=== PATIENT | male | born 1935 | race Caucasian/White ===

== ENCOUNTER 2016-06-26 14:11 | Inpatient (IN) | payer MEDICARE, OTHER ==
[~2016-06-26 14:11] MED LIST: ASPIRIN EC81 MG PO; CINNAMON500 M1 PO; CO Q-10100 M2 PO; CRESTOR20 M1 PO; LECITHIN PO; LISINOPRIL2.5 M1 PO; MAGNESIUM400 M2 PO; NITROSTAT0.4 M1 PO; NORVASC5 M2 PO; SUPER B WITH V1 EACH PO; TOPROL XL25 M1 PO; VITAMIN D31000 UNI4 PO; [UNRECOGNIZED DRUG - OTHER] TOP
[2016-06-27 05:24] LABS: BASO % 0.2 % (0-2); EOS % 5.3 % (0-7); EOSINOPHIL ABSOLUTE COUNT 0.3 tho/cmm (0.0-0.7); IMMATURE GRANULOCYTES ABSOLUTE 0.01 tho/cmm (0-0.03); IMMATURE GRANULOCYTES PERCENT 0.2 % (0-0.3); LYMPH % 8.1 % (20-45); LYMPH ABSOLUTE COUNT 0.5 tho/cmm (0.8-4.5); MCV (MEAN CELL VOLUME) 93.6 fl (82.0-96.0); MEAN PLATELET VOLUME 10.5 cmc (9.4-12.4); MONO % 7.7 % (0-12); MONOCYTE ABSOLUTE COUNT 0.5 tho/cmm (0.0-1.2); NEUTROPHIL ABSOLUTE COUNT 4.9 tho/cmm (1.6-8.0); NEUTROPHIL-AUTOMATED 4.9 tho/cmm (1.6-8.0); NEUTROPHILS % 78.5 % (40-80); PLATELET COUNT 155 tho/cmm (150-450); RED BLOOD COUNT 2.67 mil/cmm (4.40-5.70); RED CELL DISTRIBUTION WIDTH 15.7 % (12.4-16.4); WHITE BLOOD COUNT 6.2 tho/cmm (4.0-10.0)
[2016-06-27 05:54] LABS: ALB/GLOB RATIO 0.8 (0.8-2.0); ALBUMIN 2.6 g/dl (3.5-5.0); ALKALINE PHOSPHATASE 66 U/L (33-138); ALT/SGPT 22 U/L (12-78); ANION GAP 14 mmol/L (0-20); AST/SGOT 26 U/L (10-40); BILIRUBIN,TOTAL 0.4 mg/dl (0.0-1.5); BLOOD UREA NITROGEN 43 mg/dl (6-24); CALCIUM 8.1 mg/dl (8.5-10.5); CARBON DIOXIDE-VENOUS 26 mmol/L (22-32); CHLORIDE 111 mmol/l (96-110); CREATININE 1.18 mg/dl (0.60-1.30); GLUCOSE 149 mg/dL (70-110); MAGNESIUM 2.8 mg/dl (1.8-2.6); PHOSPHOROUS 4.1 mg/dl (2.5-4.9); POTASSIUM 3.5 mmol/L (3.7-5.1); SODIUM 147 mmol/L (135-145); eGFR VALUE FOR BLACK 67 mL/Min
[2016-06-27 20:57] LABS: BASO % 0.1 % (0-2); EOS % 4.3 % (0-7); EOSINOPHIL ABSOLUTE COUNT 0.4 tho/cmm (0.0-0.7); HCT-HEMATOCRIT 28.9 % (36.0-53.5); HGB-HEMOGLOBIN 9.2 gm/dl (13.5-17.0); IMMATURE GRANULOCYTES ABSOLUTE 0.02 tho/cmm (0-0.03); IMMATURE GRANULOCYTES PERCENT 0.2 % (0-0.3); LYMPH % 8.9 % (20-45); LYMPH ABSOLUTE COUNT 0.7 tho/cmm (0.8-4.5); MCHC MEAN CORPUSCULAR HGB CONC 31.8 % (32.0-36.0); MCV (MEAN CELL VOLUME) 94.1 fl (82.0-96.0); MEAN PLATELET VOLUME 10.1 cmc (9.4-12.4); MONO % 5.5 % (0-12); MONOCYTE ABSOLUTE COUNT 0.4 tho/cmm (0.0-1.2); NEUTROPHIL ABSOLUTE COUNT 6.5 tho/cmm (1.6-8.0); NEUTROPHIL-AUTOMATED 6.5 tho/cmm (1.6-8.0); PLATELET COUNT 206 tho/cmm (150-450); RED BLOOD COUNT 3.07 mil/cmm (4.40-5.70); RED CELL DISTRIBUTION WIDTH 15.4 % (12.4-16.4); WHITE BLOOD COUNT 8.1 tho/cmm (4.0-10.0)
[2016-06-27 21:03] LABS: ANION GAP 14 mmol/L (0-20); BLOOD UREA NITROGEN 36 mg/dl (6-24); CARBON DIOXIDE-VENOUS 28 mmol/L (22-32); CHLORIDE 110 mmol/l (96-110); GLUCOSE 141 mg/dL (70-110); SODIUM 148 mmol/L (135-145)
[2016-06-27 21:04] LABS: CALCIUM 8.2 mg/dl (8.5-10.5); CREATININE 1.05 mg/dl (0.60-1.30); eGFR VALUE FOR BLACK 77 mL/Min
[2016-06-27 21:16] LABS: INR 1.3 INR (0.9-1.1); PROTHROMBIN TIME 14.7 SECONDS (9.0-13.6)
[2016-06-28 00:21] LABS: ABG CO2 ARTERIAL 25 mmol/L (21-27); ARTERIAL BLD GAS O2 SATURATION 99 % (95-98); ARTERIAL BLOOD GAS PCO2 46 mmHg (32-45); ARTERIAL PO2 127 mmHg (70-100); BICARBONATE 23 mmol/L (21-28); BLOOD GAS BASE EXCESS -2 mM/L (-/+3); PH 7.33 Units (7.35-7.45)
[2016-06-28 00:24] LABS: POTASSIUM 3.7 mmol/L (3.5-5.3)
[2016-06-28 02:56] LABS: ABG CO2 ARTERIAL 24 mmol/L (21-27); ARTERIAL BLD GAS O2 SATURATION 100 % (95-98); ARTERIAL BLOOD GAS PCO2 41 mmHg (32-45); ARTERIAL PO2 154 mmHg (70-100); BICARBONATE 23 mmol/L (21-28); BLOOD GAS BASE EXCESS -2 mM/L (-/+3); PH 7.37 Units (7.35-7.45)
[2016-06-28 03:02] LABS: HGB-HEMOGLOBIN 7.1 gm/dl (13.5-17.0); MCV (MEAN CELL VOLUME) 94.5 fl (82.0-96.0); RED CELL DISTRIBUTION WIDTH 15.5 % (12.4-16.4)
[2016-06-28 03:07] LABS: HCT-HEMATOCRIT 22.5 % (36.0-53.5)
[2016-06-28 05:38] LABS: HGB-HEMOGLOBIN 7.5 gm/dl (13.5-17.0); MCH (MEAN CORPUSCULAR HGB) 29.9 pg (28.0-32.0); MCV (MEAN CELL VOLUME) 93.6 fl (82.0-96.0); MEAN PLATELET VOLUME 10.8 cmc (9.4-12.4); NEUTROPHIL-AUTOMATED 4.2 tho/cmm (1.6-8.0); PLATELET COUNT 151 tho/cmm (150-450); RED BLOOD COUNT 2.51 mil/cmm (4.40-5.70); RED CELL DISTRIBUTION WIDTH 15.4 % (12.4-16.4); WHITE BLOOD COUNT 4.7 tho/cmm (4.0-10.0)
[2016-06-28 05:38] LABS: ABG CO2 ARTERIAL 25 mmol/L (21-27); ARTERIAL BLD GAS O2 SATURATION 99 % (95-98); ARTERIAL BLOOD GAS PCO2 37 mmHg (32-45); BICARBONATE 24 mmol/L (21-28); BLOOD GAS BASE EXCESS 0 mM/L (-/+3); PH 7.42 Units (7.35-7.45)
[2016-06-28 05:40] LABS: ARTERIAL PO2 120 mmHg (70-100)
[2016-06-28 05:54] LABS: HCT-HEMATOCRIT 23.5 % (36.0-53.5); MCHC MEAN CORPUSCULAR HGB CONC 31.9 % (32.0-36.0)
[2016-06-28 06:00] LABS: ALB/GLOB RATIO 1.2 (0.8-2.0); ALBUMIN 2.6 g/dl (3.5-5.0); ALKALINE PHOSPHATASE 42 U/L (33-138); ALT/SGPT 27 U/L (12-78); ANION GAP 13 mmol/L (0-20); BILIRUBIN,DIRECT 0.3 mg/dl (0.0-0.3); BLOOD UREA NITROGEN 42 mg/dl (6-24); CALCIUM 7.4 mg/dl (8.5-10.5); CARBON DIOXIDE-VENOUS 24 mmol/L (22-32); CHLORIDE 115 mmol/l (96-110); GLUCOSE 213 mg/dL (70-110); POTASSIUM 4.2 mmol/L (3.7-5.1); SODIUM 148 mmol/L (135-145)
[2016-06-28 06:04] LABS: AST/SGOT 42 U/L (10-40); BILIRUBIN,INDIRECT 0.7 mg/dL (0.0-1.0); CREATININE 1.61 mg/dl (0.60-1.30); eGFR VALUE FOR BLACK 46 mL/Min
[2016-06-28 07:19] LABS: BAND % 44 % (0-20); BAND ABSOLUTE COUNT 2.1 tho/cmm (0-2.0); BASOPHIL % 1 % (0-2)
[2016-06-28 11:15] LABS: HCT-HEMATOCRIT 32.3 % (36.0-53.5); HGB-HEMOGLOBIN 10.6 gm/dl (13.5-17.0); MCV (MEAN CELL VOLUME) 90.7 fl (82.0-96.0); RED CELL DISTRIBUTION WIDTH 15.3 % (12.4-16.4)
[2016-06-29 03:54] LABS: ANION GAP 11 mmol/L (0-20); BLOOD UREA NITROGEN 40 mg/dl (6-24); CALCIUM 7.4 mg/dl (8.5-10.5); CARBON DIOXIDE-VENOUS 25 mmol/L (22-32); CHLORIDE 115 mmol/l (96-110); CREATININE 1.41 mg/dl (0.60-1.30); GLUCOSE 234 mg/dL (70-110); POTASSIUM 4.3 mmol/L (3.7-5.1); SODIUM 147 mmol/L (135-145); eGFR VALUE FOR BLACK 54 mL/Min
[2016-06-29 05:23] LABS: ABG CO2 ARTERIAL 26 mmol/L (21-27); ARTERIAL BLD GAS O2 SATURATION 96 % (95-98); ARTERIAL BLOOD GAS PCO2 34 mmHg (32-45); ARTERIAL PO2 75 mmHg (70-100); BICARBONATE 25 mmol/L (21-28); BLOOD GAS BASE EXCESS 1 mM/L (-/+3); PH 7.47 Units (7.35-7.45)
[2016-06-29 12:45] LABS: HCT-HEMATOCRIT 28.3 % (36.0-53.5); HGB-HEMOGLOBIN 9.1 gm/dl (13.5-17.0); MCH (MEAN CORPUSCULAR HGB) 29.3 pg (28.0-32.0); MCHC MEAN CORPUSCULAR HGB CONC 32.2 % (32.0-36.0); MEAN PLATELET VOLUME 11.9 cmc (9.4-12.4); NEUTROPHIL-AUTOMATED 7.4 tho/cmm (1.6-8.0); PLATELET COUNT 128 tho/cmm (150-450); RED BLOOD COUNT 3.11 mil/cmm (4.40-5.70); RED CELL DISTRIBUTION WIDTH 15.5 % (12.4-16.4)
[2016-06-29 12:50] LABS: WHITE BLOOD COUNT 8.1 tho/cmm (4.0-10.0)
[2016-06-29 13:58] LABS: BAND % 24 % (0-20); BAND ABSOLUTE COUNT 1.9 tho/cmm (0-2.0)
[2016-06-29 16:30] LABS: ABG CO2 ARTERIAL 27 mmol/L (21-27); ARTERIAL BLD GAS O2 SATURATION 98 % (95-98); ARTERIAL BLOOD GAS PCO2 35 mmHg (32-45); BICARBONATE 26 mmol/L (21-28); BLOOD GAS BASE EXCESS 3 mM/L (-/+3); PH 7.49 Units (7.35-7.45)
[2016-06-29 16:31] LABS: ARTERIAL PO2 98 mmHg (70-100)
[2016-06-30 04:37] LABS: EOSINOPHIL ABSOLUTE COUNT 0.1 tho/cmm (0.0-0.7); HCT-HEMATOCRIT 28.7 % (36.0-53.5); HGB-HEMOGLOBIN 9.3 gm/dl (13.5-17.0); IMMATURE GRANULOCYTES ABSOLUTE 0.02 tho/cmm (0-0.03); IMMATURE GRANULOCYTES PERCENT 0.3 % (0-0.3); LYMPH ABSOLUTE COUNT 0.4 tho/cmm (0.8-4.5); MCH (MEAN CORPUSCULAR HGB) 29.7 pg (28.0-32.0); MCHC MEAN CORPUSCULAR HGB CONC 32.4 % (32.0-36.0); MCV (MEAN CELL VOLUME) 91.7 fl (82.0-96.0); MEAN PLATELET VOLUME 11.2 cmc (9.4-12.4); MONO % 2.1 % (0-12); MONOCYTE ABSOLUTE COUNT 0.2 tho/cmm (0.0-1.2); NEUTROPHIL ABSOLUTE COUNT 7.3 tho/cmm (1.6-8.0); NEUTROPHIL-AUTOMATED 7.3 tho/cmm (1.6-8.0); NEUTROPHILS % 91.6 % (40-80); PLATELET COUNT 135 tho/cmm (150-450); RED BLOOD COUNT 3.13 mil/cmm (4.40-5.70); RED CELL DISTRIBUTION WIDTH 15.6 % (12.4-16.4)
[2016-06-30 05:20] LABS: ALB/GLOB RATIO 0.5 (0.8-2.0); ALBUMIN 1.9 g/dl (3.5-5.0); ALKALINE PHOSPHATASE 54 U/L (33-138); ALT/SGPT 30 U/L (12-78); ANION GAP 12 mmol/L (0-20); AST/SGOT 41 U/L (10-40); BILIRUBIN,TOTAL 0.5 mg/dl (0.0-1.5); BLOOD UREA NITROGEN 39 mg/dl (6-24); CALCIUM 7.8 mg/dl (8.5-10.5); CARBON DIOXIDE-VENOUS 27 mmol/L (22-32); CHLORIDE 115 mmol/l (96-110); CREATININE 1.26 mg/dl (0.60-1.30); GLUCOSE 184 mg/dL (70-110); MAGNESIUM 2.7 mg/dl (1.8-2.6); PHOSPHOROUS 3.2 mg/dl (2.5-4.9); POTASSIUM 4.4 mmol/L (3.7-5.1); SODIUM 150 mmol/L (135-145); eGFR VALUE FOR BLACK 62 mL/Min
[2016-06-30 05:48] LABS: PREALBUMIN 4.6 mg/dl (20.0-40.0)
[2016-07-01 04:35] LABS: BASO % 0.1 % (0-2); EOS % 3.5 % (0-7); EOSINOPHIL ABSOLUTE COUNT 0.3 tho/cmm (0.0-0.7); HCT-HEMATOCRIT 28.6 % (36.0-53.5); IMMATURE GRANULOCYTES ABSOLUTE 0.01 tho/cmm (0-0.03); IMMATURE GRANULOCYTES PERCENT 0.1 % (0-0.3); LYMPH % 3.8 % (20-45); LYMPH ABSOLUTE COUNT 0.3 tho/cmm (0.8-4.5); MCH (MEAN CORPUSCULAR HGB) 29.4 pg (28.0-32.0); MCHC MEAN CORPUSCULAR HGB CONC 31.5 % (32.0-36.0); MCV (MEAN CELL VOLUME) 93.5 fl (82.0-96.0); MEAN PLATELET VOLUME 11.6 cmc (9.4-12.4); MONO % 5.2 % (0-12); MONOCYTE ABSOLUTE COUNT 0.4 tho/cmm (0.0-1.2); NEUTROPHIL ABSOLUTE COUNT 6.4 tho/cmm (1.6-8.0); NEUTROPHIL-AUTOMATED 6.4 tho/cmm (1.6-8.0); NEUTROPHILS % 87.3 % (40-80); PLATELET COUNT 154 tho/cmm (150-450); RED BLOOD COUNT 3.06 mil/cmm (4.40-5.70); RED CELL DISTRIBUTION WIDTH 15.5 % (12.4-16.4); WHITE BLOOD COUNT 7.3 tho/cmm (4.0-10.0)
[2016-07-01 04:49] LABS: ANION GAP 11 mmol/L (0-20); BLOOD UREA NITROGEN 34 mg/dl (6-24); CALCIUM 7.9 mg/dl (8.5-10.5); CARBON DIOXIDE-VENOUS 28 mmol/L (22-32); CHLORIDE 114 mmol/l (96-110); CREATININE 1.06 mg/dl (0.60-1.30); GLUCOSE 191 mg/dL (70-110); POTASSIUM 4.2 mmol/L (3.7-5.1); SODIUM 149 mmol/L (135-145); eGFR VALUE FOR BLACK 76 mL/Min
[2016-07-02 05:31] LABS: PLATELET COUNT 175 tho/cmm (150-450)
[2016-07-02 05:47] LABS: ANION GAP 10 mmol/L (0-20); BLOOD UREA NITROGEN 33 mg/dl (6-24); CALCIUM 7.7 mg/dl (8.5-10.5); CARBON DIOXIDE-VENOUS 29 mmol/L (22-32); CHLORIDE 110 mmol/l (96-110); CREATININE 1.12 mg/dl (0.60-1.30); GLUCOSE 184 mg/dL (70-110); POTASSIUM 4.4 mmol/L (3.7-5.1); SODIUM 145 mmol/L (135-145); eGFR VALUE FOR BLACK 72 mL/Min
[2016-07-02 08:24] LABS: ABG CO2 ARTERIAL 28 mmol/L (21-27); ARTERIAL BLD GAS O2 SATURATION 97 % (95-98); ARTERIAL BLOOD GAS PCO2 42 mmHg (32-45); ARTERIAL PO2 83 mmHg (70-100); BICARBONATE 27 mmol/L (21-28); BLOOD GAS BASE EXCESS 3 mM/L (-/+3); PH 7.42 Units (7.35-7.45)
[2016-07-03 06:20] LABS: ANION GAP 10 mmol/L (0-20); BLOOD UREA NITROGEN 35 mg/dl (6-24); CALCIUM 7.6 mg/dl (8.5-10.5); CARBON DIOXIDE-VENOUS 28 mmol/L (22-32); CHLORIDE 108 mmol/l (96-110); CREATININE 1.15 mg/dl (0.60-1.30); GLUCOSE 184 mg/dL (70-110); MAGNESIUM 2.2 mg/dl (1.8-2.6); PHOSPHOROUS 3.2 mg/dl (2.5-4.9); POTASSIUM 4.4 mmol/L (3.7-5.1); SODIUM 142 mmol/L (135-145); eGFR VALUE FOR BLACK 69 mL/Min
[2016-07-03 06:36] LABS: PROCALCITONIN 1.73 ng/ml (0.05-0.09)
[2016-07-04 04:30] LABS: BASO % 0.2 % (0-2); EOS % 3.4 % (0-7); EOSINOPHIL ABSOLUTE COUNT 0.3 tho/cmm (0.0-0.7); HCT-HEMATOCRIT 28.2 % (36.0-53.5); HGB-HEMOGLOBIN 8.7 gm/dl (13.5-17.0); IMMATURE GRANULOCYTES ABSOLUTE 0.04 tho/cmm (0-0.03); IMMATURE GRANULOCYTES PERCENT 0.4 % (0-0.3); LYMPH ABSOLUTE COUNT 0.7 tho/cmm (0.8-4.5); MCH (MEAN CORPUSCULAR HGB) 28.8 pg (28.0-32.0); MCHC MEAN CORPUSCULAR HGB CONC 30.9 % (32.0-36.0); MCV (MEAN CELL VOLUME) 93.4 fl (82.0-96.0); MEAN PLATELET VOLUME 11.9 cmc (9.4-12.4); MONO % 5.5 % (0-12); MONOCYTE ABSOLUTE COUNT 0.5 tho/cmm (0.0-1.2); NEUTROPHIL ABSOLUTE COUNT 7.4 tho/cmm (1.6-8.0); NEUTROPHIL-AUTOMATED 7.4 tho/cmm (1.6-8.0); NEUTROPHILS % 82.5 % (40-80); PLATELET COUNT 229 tho/cmm (150-450); RED BLOOD COUNT 3.02 mil/cmm (4.40-5.70); RED CELL DISTRIBUTION WIDTH 15.1 % (12.4-16.4); WHITE BLOOD COUNT 8.9 tho/cmm (4.0-10.0)
[2016-07-04 04:43] LABS: ALB/GLOB RATIO 0.3 (0.8-2.0); ALBUMIN 1.4 g/dl (3.5-5.0); ALKALINE PHOSPHATASE 126 U/L (33-138); ALT/SGPT 131 U/L (12-78); ANION GAP 11 mmol/L (0-20); AST/SGOT 157 U/L (10-40); BILIRUBIN,TOTAL 0.5 mg/dl (0.0-1.5); BLOOD UREA NITROGEN 37 mg/dl (6-24); CALCIUM 7.7 mg/dl (8.5-10.5); CARBON DIOXIDE-VENOUS 28 mmol/L (22-32); CHLORIDE 108 mmol/l (96-110); CREATININE 1.22 mg/dl (0.60-1.30); GLUCOSE 174 mg/dL (70-110); MAGNESIUM 2.4 mg/dl (1.8-2.6); PHOSPHOROUS 3.2 mg/dl (2.5-4.9); POTASSIUM 4.4 mmol/L (3.7-5.1); SODIUM 143 mmol/L (135-145); eGFR VALUE FOR BLACK 64 mL/Min
[2016-07-04 06:48] LABS: PREALBUMIN 6.2 mg/dl (20.0-40.0)
[2016-07-05 03:52] LABS: ALB/GLOB RATIO 0.3 (0.8-2.0); ALBUMIN 1.4 g/dl (3.5-5.0); ALKALINE PHOSPHATASE 136 U/L (33-138); ALT/SGPT 134 U/L (12-78); BILIRUBIN,TOTAL 0.4 mg/dl (0.0-1.5); BLOOD UREA NITROGEN 38 mg/dl (6-24); CALCIUM 7.5 mg/dl (8.5-10.5); CARBON DIOXIDE-VENOUS 26 mmol/L (22-32); CHLORIDE 109 mmol/l (96-110); CREATININE 1.09 mg/dl (0.60-1.30); GLUCOSE 183 mg/dL (70-110); PHOSPHOROUS 3.3 mg/dl (2.5-4.9); SODIUM 139 mmol/L (135-145); eGFR VALUE FOR BLACK 74 mL/Min
[2016-07-05 04:06] LABS: ANION GAP 12 mmol/L (0-20); AST/SGOT 155 U/L (10-40); MAGNESIUM 2.3 mg/dl (1.8-2.6)
[2016-07-05 04:13] LABS: PROCALCITONIN 0.98 ng/ml (0.05-0.09)
[2016-07-05 05:50] LABS: ALB/GLOB RATIO 0.3 (0.8-2.0); ALBUMIN 1.4 g/dl (3.5-5.0); ALKALINE PHOSPHATASE 145 U/L (33-138); ALT/SGPT 137 U/L (12-78); ANION GAP 12 mmol/L (0-20); AST/SGOT 143 U/L (10-40); BILIRUBIN,TOTAL 0.4 mg/dl (0.0-1.5); BLOOD UREA NITROGEN 38 mg/dl (6-24); CALCIUM 7.7 mg/dl (8.5-10.5); CARBON DIOXIDE-VENOUS 28 mmol/L (22-32); CHLORIDE 108 mmol/l (96-110); CREATININE 1.13 mg/dl (0.60-1.30); GLUCOSE 188 mg/dL (70-110); MAGNESIUM 2.5 mg/dl (1.8-2.6); PHOSPHOROUS 3.1 mg/dl (2.5-4.9); SODIUM 143 mmol/L (135-145); eGFR VALUE FOR BLACK 71 mL/Min
[2016-07-05 05:58] LABS: POTASSIUM 4.8 mmol/L (3.7-5.1)
[2016-07-05 06:16] LABS: PROCALCITONIN 0.97 ng/ml (0.05-0.09)
[2016-07-06 05:29] LABS: HGB-HEMOGLOBIN 9.4 gm/dl (13.5-17.0); PLATELET COUNT 337 tho/cmm (150-450)
[2016-07-06 07:46] LABS: POTASSIUM 7.7 mmol/L (3.7-5.1)
[2016-07-06 19:06] LABS: BASO % 0.2 % (0-2); EOS % 2.2 % (0-7); EOSINOPHIL ABSOLUTE COUNT 0.2 tho/cmm (0.0-0.7); HCT-HEMATOCRIT 28.1 % (36.0-53.5); IMMATURE GRANULOCYTES ABSOLUTE 0.03 tho/cmm (0-0.03); IMMATURE GRANULOCYTES PERCENT 0.4 % (0-0.3); LYMPH % 6.9 % (20-45); LYMPH ABSOLUTE COUNT 0.6 tho/cmm (0.8-4.5); MCH (MEAN CORPUSCULAR HGB) 29.3 pg (28.0-32.0); MCV (MEAN CELL VOLUME) 91.5 fl (82.0-96.0); MEAN PLATELET VOLUME 12.4 cmc (9.4-12.4); MONO % 6.5 % (0-12); MONOCYTE ABSOLUTE COUNT 0.6 tho/cmm (0.0-1.2); NEUTROPHIL ABSOLUTE COUNT 7.2 tho/cmm (1.6-8.0); NEUTROPHIL-AUTOMATED 7.2 tho/cmm (1.6-8.0); NEUTROPHILS % 83.8 % (40-80); PLATELET COUNT 357 tho/cmm (150-450); RED BLOOD COUNT 3.07 mil/cmm (4.40-5.70); RED CELL DISTRIBUTION WIDTH 14.8 % (12.4-16.4); WHITE BLOOD COUNT 8.6 tho/cmm (4.0-10.0)
[2016-07-06 19:23] LABS: ALB/GLOB RATIO 0.3 (0.8-2.0); ALBUMIN 1.5 g/dl (3.5-5.0); ALKALINE PHOSPHATASE 165 U/L (33-138); ALT/SGPT 156 U/L (12-78); ANION GAP 11 mmol/L (0-20); AST/SGOT 136 U/L (10-40); BILIRUBIN,DIRECT 0.2 mg/dl (0.0-0.3); BILIRUBIN,INDIRECT 0.2 mg/dL (0.0-1.0); BILIRUBIN,TOTAL 0.4 mg/dl (0.0-1.5); BLOOD UREA NITROGEN 35 mg/dl (6-24); CARBON DIOXIDE-VENOUS 27 mmol/L (22-32); CHLORIDE 110 mmol/l (96-110); CREATININE 0.97 mg/dl (0.60-1.30); GLUCOSE 196 mg/dL (70-110); POTASSIUM 4.4 mmol/L (3.7-5.1); SODIUM 144 mmol/L (135-145); eGFR VALUE FOR BLACK 85 mL/Min
[2016-07-07 05:54] LABS: ALB/GLOB RATIO 0.3 (0.8-2.0); ALBUMIN 1.5 g/dl (3.5-5.0); ALKALINE PHOSPHATASE 171 U/L (33-138); ALT/SGPT 166 U/L (12-78); ANION GAP 12 mmol/L (0-20); AST/SGOT 134 U/L (10-40); BILIRUBIN,TOTAL 0.4 mg/dl (0.0-1.5); BLOOD UREA NITROGEN 35 mg/dl (6-24); CALCIUM 8.1 mg/dl (8.5-10.5); CARBON DIOXIDE-VENOUS 26 mmol/L (22-32); CHLORIDE 112 mmol/l (96-110); CREATININE 0.95 mg/dl (0.60-1.30); GLUCOSE 203 mg/dL (70-110); MAGNESIUM 2.3 mg/dl (1.8-2.6); PHOSPHOROUS 3.5 mg/dl (2.5-4.9); POTASSIUM 4.5 mmol/L (3.7-5.1); SODIUM 145 mmol/L (135-145); eGFR VALUE FOR BLACK 87 mL/Min
[2016-07-07 06:00] LABS: PREALBUMIN 7.9 mg/dl (20.0-40.0)
[2016-07-09 07:15] LABS: BASO % 0.2 % (0-2); EOS % 3.6 % (0-7); EOSINOPHIL ABSOLUTE COUNT 0.3 tho/cmm (0.0-0.7); HCT-HEMATOCRIT 27.1 % (36.0-53.5); HGB-HEMOGLOBIN 8.5 gm/dl (13.5-17.0); IMMATURE GRANULOCYTES ABSOLUTE 0.09 tho/cmm (0-0.03); IMMATURE GRANULOCYTES PERCENT 0.9 % (0-0.3); LYMPH % 8.8 % (20-45); LYMPH ABSOLUTE COUNT 0.8 tho/cmm (0.8-4.5); MCH (MEAN CORPUSCULAR HGB) 28.7 pg (28.0-32.0); MCHC MEAN CORPUSCULAR HGB CONC 31.4 % (32.0-36.0); MCV (MEAN CELL VOLUME) 91.6 fl (82.0-96.0); MEAN PLATELET VOLUME 11.9 cmc (9.4-12.4); MONO % 6.4 % (0-12); MONOCYTE ABSOLUTE COUNT 0.6 tho/cmm (0.0-1.2); NEUTROPHIL ABSOLUTE COUNT 7.7 tho/cmm (1.6-8.0); NEUTROPHIL-AUTOMATED 7.7 tho/cmm (1.6-8.0); NEUTROPHILS % 80.1 % (40-80); PLATELET COUNT 482 tho/cmm (150-450); RED BLOOD COUNT 2.96 mil/cmm (4.40-5.70); RED CELL DISTRIBUTION WIDTH 14.8 % (12.4-16.4); WHITE BLOOD COUNT 9.6 tho/cmm (4.0-10.0)
[2016-07-09 07:29] LABS: ANION GAP 12 mmol/L (0-20); BLOOD UREA NITROGEN 41 mg/dl (6-24); CARBON DIOXIDE-VENOUS 26 mmol/L (22-32); CHLORIDE 110 mmol/l (96-110); CREATININE 1.06 mg/dl (0.60-1.30); GLUCOSE 194 mg/dL (70-110); POTASSIUM 4.5 mmol/L (3.7-5.1); SODIUM 143 mmol/L (135-145); eGFR VALUE FOR BLACK 76 mL/Min
[2016-07-09 18:00] LABS: ABG CO2 ARTERIAL 23 mmol/L (21-27); ARTERIAL BLD GAS O2 SATURATION 97 % (95-98); ARTERIAL BLOOD GAS PCO2 39 mmHg (32-45); ARTERIAL PO2 107 mmHg (70-100); BICARBONATE 21 mmol/L (21-28); BLOOD GAS BASE EXCESS -3 mM/L (-/+3); PH 7.36 Units (7.35-7.45)
[2016-07-09 18:11] LABS: BASO % 1.3 % (0-2); EOS % 4.7 % (0-7); EOSINOPHIL ABSOLUTE COUNT 0.1 tho/cmm (0.0-0.7); HCT-HEMATOCRIT 29.3 % (36.0-53.5); HGB-HEMOGLOBIN 9.2 gm/dl (13.5-17.0); IMMATURE GRANULOCYTES ABSOLUTE 0.07 tho/cmm (0-0.03); IMMATURE GRANULOCYTES PERCENT 2.4 % (0-0.3); LYMPH % 18.9 % (20-45); LYMPH ABSOLUTE COUNT 0.6 tho/cmm (0.8-4.5); MCHC MEAN CORPUSCULAR HGB CONC 31.4 % (32.0-36.0); MCV (MEAN CELL VOLUME) 92.4 fl (82.0-96.0); MEAN PLATELET VOLUME 12.5 cmc (9.4-12.4); MONO % 2.4 % (0-12); MONOCYTE ABSOLUTE COUNT 0.1 tho/cmm (0.0-1.2); NEUTROPHIL ABSOLUTE COUNT 2.1 tho/cmm (1.6-8.0); NEUTROPHIL-AUTOMATED 2.1 tho/cmm (1.6-8.0); NEUTROPHILS % 70.3 % (40-80); PLATELET COUNT 605 tho/cmm (150-450); RED BLOOD COUNT 3.17 mil/cmm (4.40-5.70); RED CELL DISTRIBUTION WIDTH 14.9 % (12.4-16.4)
[2016-07-09 18:43] LABS: ALB/GLOB RATIO 0.3 (0.8-2.0); ALBUMIN 1.7 g/dl (3.5-5.0); ALKALINE PHOSPHATASE 218 U/L (33-138); ALT/SGPT 176 U/L (12-78); ANION GAP 14 mmol/L (0-20); AST/SGOT 125 U/L (10-40); BILIRUBIN,TOTAL 0.3 mg/dl (0.0-1.5); BLOOD UREA NITROGEN 48 mg/dl (6-24); CALCIUM 8.1 mg/dl (8.5-10.5); CARBON DIOXIDE-VENOUS 25 mmol/L (22-32); CHLORIDE 110 mmol/l (96-110); CREATININE 1.32 mg/dl (0.60-1.30); GLUCOSE 147 mg/dL (70-110); POTASSIUM 4.9 mmol/L (3.7-5.1); SODIUM 144 mmol/L (135-145); eGFR VALUE FOR BLACK 59 mL/Min
--- NOTE | 2016-07-09 19:15 | NUR ---
RN NOTIFIED DR. LAGUNAS FACE TO FACE AT 1745 PATIENT IS NOW ON BIPAP FROM [facility] WITH SATURATIONS IN THE LOW 90'S. RR 40-60, HR 95-105, INCREASINGLY LETHARGIC, SEAL [facility] CALLED CXR, ABG, CBC, CMP AND LA ORDERED IN SEAL [facility]INNER. MEWS 7. MD STATES NO NEW ORDERS AND THAT HE WILL SEE THE PATIENT WHEN HE IS ROUNDING. RN NOTIFIED JOO GUTIERREZ BY PHONE AT 1755 WITH THE ABOVE LISTED INFORMATION. MATT STATES NO NEW ORDERS AND TO ALLOW PULMONOLOGY (BEBO) TO SEE FIRST. 1830 PATIENT TRANSFERRED TO CCU - PLEASE SEE [facility]AL [facility] NOTES, BEDSIDE REPORT GIVEN TO ELBERT DEVLIN.
[2016-07-09 20:38] LABS: POTASSIUM 5.5 mmol/L (3.5-5.3)
[2016-07-09 20:40] LABS: PH-VENOUS 6.96 Units (7.35-7.45)
--- NOTE | 2016-07-10 01:08 | NUR ---
PATIENT CALL PERSON FROM PCU TO CCU AT 1850. INCREASED WORK OF BREATHING RR 40-50S ON BIPAP AT 60%. TEMP 39.0. SBP 150S/90S. HR 100S ST. PATIENT LETHARGIC AND DISORIENTED. NGT PLACED TO LIS, 400CC OF DARK RED OUTPUT. DR. QUINTANA HERE TO SEE PATIENT. DISCUSSED INTUBATION WITH FAMILY AFTER ASSESSING PATIENT. PATIENT INTUBATED AT [address] LAGUNAS WITH ASSISTANCE FROM RT. ETT AND NG PLACEMENT VERIFIED BY XRAY. DR. CULLEN CALLED AND UPDATED BY DR. QUINTANA. PATIENT SBP POST INTUBATION, 80S/40S. 500CC BOLUS GIVEN PER DR. QUINTANA AND NS STARTED @125CC/HR. NO CHANGE IN SBP NOTED WITH FLUID BOLUS. SBP NOW 70S/30S. DR. QUINTANA CALLED AND MESSAGE LEFT @2002. DR. ALONSO CALLED @2003 AND UPDATED ON SITUATION. 2L BOLUS ORDERED AND ORDERS FOR LEVOPHED RECEIVED. RT CALLED TO PLACE ART LINE AND PHARMACY CALLED TO SEND UP LEVOPHED STAT. HR NOW 60-70S AFIB, SBP 60S/20S. 2L BOLUS STARTED. WAITING FOR LEVOPHED. HR 50S TO 30S @2013, NO PULSE, CODE CALLED @2014. ACLS INITIATED AND COMPRESSIONS STARTED, SEE CODE SHEET.
== END 2016-07-09 20:57 | disposition expired | DRG 329 ==
LOC: 5WE 14:11 → ORW 06-28 00:06 → CCU 06-28 02:35 → PCUA 07-05 17:42 → CCU 07-09 18:40
PROVIDERS: Anesthesiology; Family Medicine; Internal Medicine; Internal Medicine Critical Care Medicine; Physician Assistant; Physician Assistant Medical; Surgery; Surgery Vascular Surgery; ADMIT Internal Medicine Cardiovascular Disease
PROC: 0D7P8DZ Dilation of Rectum with Intraluminal Device, Via Natural or Artificial Opening Endoscopic (ICD-10-PCS; 2016-06-26)
PROC: 0DBL8ZX Excision of Transverse Colon, Via Natural or Artificial Opening Endoscopic, Diagnostic (ICD-10-PCS; 2016-06-26)
PROC: 5A09457 Assistance with Respiratory Ventilation, 24-96 Consecutive Hours, Continuous Positive Airway Pressure (ICD-10-PCS; 2016-06-26)
PROC: 0DBL0ZZ Excision of Transverse Colon, Open Approach (ICD-10-PCS; principal; 2016-06-28)
PROC: 0DBM0ZZ Excision of Descending Colon, Open Approach (ICD-10-PCS; principal; 2016-06-28)
PROC: 0DBK0ZZ Excision of Ascending Colon, Open Approach (ICD-10-PCS; principal; 2016-06-28)
PROC: 0D1B0Z4 Bypass Ileum to Cutaneous, Open Approach (ICD-10-PCS; principal; 2016-06-28)
PROC: 0DBN0ZZ Excision of Sigmoid Colon, Open Approach (ICD-10-PCS; principal; 2016-06-28)
PROC: 0FT40ZZ Resection of Gallbladder, Open Approach (ICD-10-PCS; principal; 2016-06-28)
PROC: 0B948ZX Drainage of Right Upper Lobe Bronchus, Via Natural or Artificial Opening Endoscopic, Diagnostic (ICD-10-PCS; 2016-07-04)
DX: K91.3 Postprocedural intestinal obstruction (principal); J96.01 Acute respiratory failure with hypoxia; K63.1 Perforation of intestine (nontraumatic); N17.9 Acute kidney failure, unspecified; E87.0 Hyperosmolality and hypernatremia; K81.9 Cholecystitis, unspecified; I48.0 Paroxysmal atrial fibrillation; R13.10 Dysphagia, unspecified; D62 Acute posthemorrhagic anemia; E78.5 Hyperlipidemia, unspecified; G47.33 Obstructive sleep apnea (adult) (pediatric); I11.9 Hypertensive heart disease without heart failure; I25.10 Atherosclerotic heart disease of native coronary artery without angina pectoris; I35.0 Nonrheumatic aortic (valve) stenosis; I44.0 Atrioventricular block, first degree; K52.9 Noninfective gastroenteritis and colitis, unspecified; M19.90 Unspecified osteoarthritis, unspecified site; Z95.1 Presence of aortocoronary bypass graft
CPT/HCPCS: C1769; C9113; J0282; J0290; J0295; J1650; J1815; J1940; J2250; J2270; J2405; J2543; J2704; J3010; J3480; J7040; J7050; P9016; P9047